=== PATIENT | male | born 1970 | race Caucasian/White ===

== ENCOUNTER 2016-08-26 02:35 | Inpatient (IN) | payer OTHER ==
--- NOTE | ~2016-08-26 | IDS ---
Interim Discharge Summary [facility] [address] [place]. [address] NAME: KE JENSEN : 66 STATUS : ADM IN PAT#: [id number] AGE: 46 ADM/REG DATE : 08/26/16 MR#: [id number] REPORT SERV DATE: 09/18/16 DICTATED BY: GREGOR KNOTT DATE: 09/18/16 REPORT STATUS : Draft TRANSCRIBED BY: MODL DATE: 09/18/16 ADMISSION DATE: 08/26/2016 DISCHARGE DATE: Original date of admission is 08/26/2016. Interim summary covers dates 09/12/2016 through 09/18/2016. Discharge date is unknown at this time. The patient has Medicaid pending. HOSPITAL COURSE OVER THE PAST 7 DAYS: The patient has been in the hospital waiting for Medicaid approval versus other alternative discharge planning. At this point, he has no SNF benefit on his insurance and no family who was able to care for him. He is undergoing a divorce from his current per reports. There is no current safe discharge plan. [facility] has agreed to take him on once a safe discharge plan has been in place. He has hospice appropriate for his diagnosis of metastatic colon cancer. In regard to his bilateral ureteral obstruction status post perinephric abscess with bilateral percutaneous nephrostomy tubes, these are doing well. He did have some purulent drainage around one of his percutaneous nephrostomy tubes which did grow E. coli. He, today, will get a last dose of Levaquin. We will monitor him off that antibiotic. He had a very prolonged course of antibiotics and at this point, it is appropriate to stop them. He did have left lower extremity DVT. The edema has largely resolved. He is currently on prophylactic dose of Lovenox which he is tolerating. The question at this point is whether to resume therapeutic anticoagulation. Urology was not in favor of this given his nephrostomy tubes and very poor prognosis and potential need for further instrumentation, however given his stability at this point, it is something we may need to consider after discussion with him while he is here to see if he tolerates this versus just leaving him on prophylactic dosing. Disposition at this time is still pending Medicaid approval or other alternative discharge planning. DNK/LAQUITA Gregor Knott MD / [id number] CC: Gregor Knott MD
--- NOTE | ~2016-08-26 | IDS ---
Interim Discharge Summary [facility] [address] [place]. [address] NAME: KE JENSEN : 66 STATUS : ADM IN PAT#: [id number] AGE: 46 ADM/REG DATE : 08/26/16 MR#: [id number] REPORT SERV DATE: 09/11/16 DICTATED BY: DATE: REPORT STATUS : Draft TRANSCRIBED BY: MODL DATE: 09/11/16 ADMISSION DATE: 08/26/2016 DISCHARGE DATE: DISCHARGE DATE: Unknown at this time. Interim summary covers dates of service from 09/05/2016 through 09/11/2016. HISTORY OF PRESENT ILLNESS: Please refer to history and physical dated 08/26/[address] Lake Mcgraw for complete details pertaining to patient's initial presentation upon admission. Refer to consultation dated 08/28/[address] Justin Larios, Urology. Refer to interim discharge summary dated 09/04/2016 covering dates of service from 08/29/2016 through 09/04/2016, provided by Dr. Clovis Archer for details pertaining to events occurring during that time frame. HOSPITAL COURSE: 1. Leukocytosis. Source of leukocytosis is multifactorial to include recent right perinephric abscess and new onset of left percutaneous nephrostomy tube insertion site drainage that started several days ago. The patient has received treatment with multiple antibiotics to include vancomycin, Zosyn, and Ancef. Vancomycin and Zosyn were discontinued, and Ancef was started around 08/29/2016 until 09/08/2016. At that time, Ancef was discontinued, and the patient was placed on Zosyn secondary to new onset of purulent drainage from left nephrostomy tube site. Initial response to antibiotic change showed improvement in white blood cell count trending down from 19.2 to 16.3. However, white blood cell count spike today at 20.7. The patient remains afebrile; however, complained of sweats during night. Culture was obtained from left nephrostomy tube site on 09/08/2016 and is pending. Anaerobic culture has approximately two more days before results were interpreted; however, there was delay in aerobic culture being initiated. Aerobic culture was requested from 09/08/2016 specimen today. Pharmacy was consulted regarding antibiotics and it was recommended to continue Zosyn for not now. There is high concern for antibiotic resistance in the setting of inability to control source. All cultures to date have been E. coli positive. 2. Right perinephric abscess. Culture positive for E. coli. Continue Zosyn for now. NGOC drain was removed several days ago after bilateral percutaneous nephrostomy tubes were placed. NGOC site has closed with no additional signs or symptoms of infection or drainage from site. Continue Zosyn for now. 3. Bilateral ureteral obstruction secondary to mass. Bilateral percutaneous nephrostomy tubes remain patent. Urine output from right nephrostomy tube is approximately 1525 mL and left nephrostomy tube output approximately 2025 mL over the past 24 hours. Urine appears fairly clear. Urinalysis was obtained again on 09/08/2016 secondary to purulent drainage around left nephrostomy tube site, result indicated large blood, large leukocyte soren, negative nitrite greater than 182 red blood cells, and greater Interim Discharge Summary [address] [address] NAME: KE JENSEN : 66 STATUS : ADM IN PAT#: [id number] AGE: 46 ADM/REG DATE : 08/26/16 MR#: [id number] REPORT SERV DATE: 09/11/16 DICTATED BY: DATE: REPORT STATUS : Draft TRANSCRIBED BY: MODL DATE: 09/11/16 than 182 white blood cells. At this time, Ancef was discontinued and Zosyn was re- initiated. Reflex culture indicated no growth at one day. However, result is probably affected by prolonged antibiotic use. 4. Decreased ostomy output. The patient had production of large stool on 09/06/2016 and approximately 175 mL of stool on 09/07/2016. However, the patient's ostomy output is significantly decreased now. The patient has no complaints of abdominal pain. KUB is pending to rule out ileus/obstruction/malfunction of ostomy site. 5. Left lower extremity DVT, acute. Left lower extremity swelling has almost resolved over the past several days. Anticoagulation is still on hold secondary to increased risks for bleeding including severe malnutrition and metastatic cancer. The patient was originally on Eliquis, but this was discontinued per Urology's recommendation due to worsening blood in patient's NGOC drain and drop in hemoglobin. We will need to reconsider restarting anticoagulation before transitioning to long term facility. 6. Chronic anemia. The patient's hemoglobin and hematocrit have remained stable since receiving transfusions on 08/26/2016 and 09/06/2016. Hemoglobin and hematocrit are 11.8 and 37.6 today. 7. Metastatic colon cancer. The patient has been treated in the past by Dr. Guerrero, at [facility]. The patient has declined hospice care. New plan is to go to long term facility for rehab and then transition home to reside with sister. CURRENT PLAN: [facility] facility approval is pending. This discharge may be delayed secondary to ongoing infection. The patient may require antibiotics upon discharge. JEREMY/LAQUITA NOAH Cason / [id number] CC: Lake Alonso II, MD
--- NOTE | ~2016-08-26 | DS ---
Discharge Summary [place] [id number] [facility] [place]. [address] NAME: KE JENSEN : 66 STATUS : DIS IN PAT#: [id number] AGE: 46 ADM/REG DATE : 08/26/16 MR#: [id number] REPORT SERV DATE: 09/25/16 DICTATED BY: DATE: REPORT STATUS : Draft TRANSCRIBED BY: MODL DATE: 09/23/16 ADMISSION DATE: 08/26/2016 DISCHARGE DATE: 09/23/2016 DISCHARGE DIAGNOSES: 1. Metastatic colon cancer. 2. Leukocytosis. 3. Bilateral ureteral obstruction. 4. Right perinephric abscess. 5. Deep venous thrombosis. 6. Constipation. 7. Chronic anemia. CONSULTATIONS: Justin Larios M.D., Urology. PERTINENT TESTING AND PROCEDURES: 1. Chest x-ray, 08/26/2016, impression: No acute cardiopulmonary disease. Heart and mediastinum are normal with clear lungs and normal vasculature. 2. CT-guided drainage of renal abscess, 08/26/2016, impression: Technically successful CT- guided placement of catheter into perinephric drain, largely non-infectious urine-type fluid was obtained. At the conclusion, most of the fluid and air had been decompressed and was addressed with Niall-Zavala drainage. 3. Echocardiogram, 08/28/2016, conclusion: Overall quality of study is good. Tachycardia noted throughout study. Left ventricular systolic function intact at 57%. Indeterminate left ventricular diastolic function. Right ventricle systolic function, intact. No significant valvular dysfunction found. No pericardial effusion. No evidence of pleural effusion. 4. Left lower extremity venous Doppler, 08/29/2016, impression: Evidence for DVT in left lower extremity. No DVT in right lower extremity. 5. CT of abdomen and pelvis, 09/01/2016:. a. Despite double-J catheters bilateral hydronephrosis, right perinephric drain apparently functioning as a de facto PCN. Hepatosplenomegaly. Cardiomegaly. Anemia. Large pelvic malignancy with calcifications identified. Body anasarca, ostomy site is not blocked. 6. 09/04/2016, successful placement of bilateral percutaneous nephrostomy tubes. Unsuccessful attempts to remove bilateral double-J stents present upon admission. 7. KUB, 09/11/2016, impression: Continued bilateral double-J ureteral stents and right- sided perinephric drain. Interval placement of left-sided percutaneous nephrostomy tube. Moderate fecal burden throughout the right and transverse colon. Upper limits normal caliber, small bowel. 8. KUB, 09/20/2016, impression: No evidence of acute abnormality within the abdomen. Bilateral ureteral stents and bilateral percutaneous renal drainage tubes remain. 9. Left kidney surgical culture, final result, growth of E. coli. 10.Right kidney surgery culture 09/04/2016, final result, growth of E. coli. 11.Anaerobic culture obtained from left nephrostomy site, final result, growth in broth only of aerobic E coli. No growth of anaerobes. Discharge Summary [place] [address] [place]. [address] NAME: KE JENSEN : 66 STATUS : DIS IN PAT#: [id number] AGE: 46 ADM/REG DATE : 08/26/16 MR#: [id number] REPORT SERV DATE: 09/25/16 DICTATED BY: DATE: REPORT STATUS : Draft TRANSCRIBED BY: MODL DATE: 09/23/16 12.Urinalysis, 09/20/2016, indicated large leukocyte esterase, negative nitrite, 24 red blood cells, 171 white blood cells, rare bacteria. Urine culture, final result, no growth at one day. POINT OF ENTRY: Transfer from [facility] Emergency Department. PRIMARY ONCOLOGIST: Dr. Guerrero at [facility]. CHIEF COMPLAINT UPON ADMISSION: Right flank pain and drainage. HOSPITAL COURSE: Please refer to history and physical, dated 08/26/[address] Lake Mcgraw for complete details of the patient's initial presentation upon admission and health history. Please refer to consultation, dated 08/28/[address] Larios, Urology for details pertaining to the patient's presentation of spontaneous drainage, right flank. The patient had a prolonged hospitalization. Please refer to interim discharge summaries, dated 09/04/2016, 09/11/2016, and 09/18/2016 for additional details pertaining to extended hospital course. Briefly, the patient is a 46-year-old male who is under the care of Dr. Guerrero, oncologist at [facility] for management and treatment of metastatic colon cancer. The patient reported to [facility] Emergency Department on 08/26/2016 with complaints of several-day history of right posterior flank pain associated with swelling and drainage. At this time, the patient per-self report was currently actively receiving chemotherapy every two weeks. Last session presumed to be Sunday prior to this admission. The patient was unable to state name of chemotherapy agents. Initial evaluation at [facility] Emergency Department was notable for heart rate of 118 with temperature of 100.4 degrees Fahrenheit. Creatinine of 3.29, potassium 5.2, and lactic acid of 4.0. CT scan of the abdomen and pelvis showed an 8 x 4 x 8 cm air and fluid collection posterior to the right kidney as well as secondary abscess that was in subcutaneous region that measured approximately 4 x 7 x 5.6 x 7.5 cm as well as pericardial effusion of approximately 1.8 cm. The patient was given IV fluid hydration and antibiotics to include vancomycin and Zosyn were initiated. The patient was then transferred to [facility] for higher level of care. The patient's hospitalization was prolonged secondary to persistent right perinephric abscess and bilateral ureteral obstruction due to pelvic mass from metastatic colon cancer. The patient also developed left lower extremity swelling with DVT confirmed by ultrasound. The patient's discharge was also delayed secondary to complicated social history to include the patient's only source of social support being his sister. 1. Metastatic colon cancer. The patient was previously under the care of Dr. Guerrero at [facility] and was reported to be undergoing chemotherapy prior to this Discharge Summary [address] [address] NAME: KE JENSEN : 66 STATUS : DIS IN PAT#: [id number] AGE: 46 ADM/REG DATE : 08/26/16 MR#: [id number] REPORT SERV DATE: 09/25/16 DICTATED BY: DATE: REPORT STATUS : Draft TRANSCRIBED BY: MODL DATE: 09/23/[address] Archer spoke with Dr. Guerrero by phone during this admission. Dr. Guerrero reported he believed the patient to be hospice appropriate at this time and had no plans for additional chemotherapy in the near future secondary to the patient's declining performance status. It was also noted that if the patient was to consider [facility] facility and had improvement in his performance status, he could follow up with Dr. Guerrero as an outpatient to see if he was a candidate for further palliative chemo. However, this was believed to be most unlikely secondary to the patient's deteriorating health state. Plans are for the patient to transition home today under the care of [facility]. 2. Leukocytosis. This has been an ongoing issue secondary to right perinephric abscess and infection at insertion site of left percutaneous nephrostomy tube. The patient has been on very prolonged course of antibiotics during this admission. Despite prolonged treatment, the patient's white blood count has never normalized secondary to extreme difficulty controlling source of infection. Antibiotic course was completed on 09/18/2016. Since discontinuation of antibiotics, the patient's white blood cell count has continued to trend upward to 23,600. Repeat urinalysis was obtained and indicated likely infection; however, urine culture result was negative. This may be related to long-term therapy with antibiotic having been discontinued only three days prior to repeat urinalysis. The patient was started on antibiotic Ancef 2 g every eight hours on 09/21/2016. Since that time, white blood cell count is once again trending downward and is reported to be 22,500 on the day of discharge. The patient will likely need lifetime antibiotic to control infection due to inability to completely resolve infection secondary to bilateral ureteral obstruction secondary to metastatic disease. The patient was placed on Duricef 1000 mg p.o. every 12 hours x10 days to be reassessed by Hospice physician upon discharge. 3. Bilateral ureteral obstruction. This is secondary to mass. The patient presented to hospital with bilateral double-J stents in place. The patient underwent placement of bilateral percutaneous nephrostomy tubes during this admission as well. Since that time, tubes have been draining without any indication of new obstruction. Several days ago, the patient did develop, what appeared to be infection at the insertion site of left percutaneous nephrostomy tube. Culture was obtained and it was positive for E. coli. Antibiotics were changed at that time, and clinical signs and symptoms of infection have since resolved. 4. Right perinephric abscess. The patient initially had NGOC drain inserted prior to waiting on bilateral percutaneous nephrostomy tubes to be placed. Old site of NGOC drain has closed with no signs or symptoms of infection. Continue antibiotic. 5. DVT. This was diagnosed during this admission per ultrasound. The patient has been on prophylaxis anticoagulant; however, no chronic anticoagulation was initiated secondary to the patient's high risk for bleeding to include metastatic colon cancer, malnutrition, and bilateral percutaneous nephrostomy tubes. The patient's left lower extremity was initially significantly swollen with 2 to 3+ pitting edema. However, that has self-resolved. The patient has no bilateral lower extremity edema at the time of discharge. 6. Constipation, chronic. This is secondary to opioid use. The patient has an ostomy, left abdominal quadrant. The patient received aggressive bowel regimen and constipation was resolved. The patient must maintain aggressive bowel regimen to avoid constipation secondary to potential complications that could be related to metastatic Discharge Summary [place] [address] [place]. [address] NAME: KE JENSEN : 66 STATUS : DIS IN PAT#: [id number] AGE: 46 ADM/REG DATE : 08/26/16 MR#: [id number] REPORT SERV DATE: 09/25/16 DICTATED BY: DATE: REPORT STATUS : Draft TRANSCRIBED BY: ALQUITA DATE: 09/23/16 colon cancer. 7. Chronic anemia. This is secondary to disease state. The patient's hemoglobin and hematocrit have remained stable. 8. Severe sepsis. This was upon admission and was related to right perinephric abscess. All signs and symptoms of sepsis have since resolved, and the patient is afebrile. DISCHARGE CONDITION: At the time of discharge, the patient is hemodynamically stable. DISCHARGE DIET: Regular diet as tolerated. DISCHARGE MEDICATIONS: 1. MS Contin 30 mg SR tablet p.o. every eight hours. 2. Protonix 40 mg tablet p.o. daily before breakfast. 3. MiraLAX 17 g p.o. twice daily, hold for excessive ostomy output. 4. Senokot one tablet p.o. every night, hold for excessive ostomy output. 5. Tylenol 650 mg p.o. every four hours as needed. 6. Milk of magnesia 30 mL p.o. daily as needed. 7. Zofran 4 mg tablet p.o. every eight hours as needed. 8. Percocet 5/325 mg tablet, take one to two tablets p.o. every six hours as needed, hold for sedation. 9. Zanaflex 2 mg tablet p.o. twice daily as needed. 10.Resume the patient's poev-cun-eecqrhe medications to include vitamin B12, iron, Gas-X, Tums, vitamin D, and cranberry supplement. 11.Cefadroxil 1000 mg tablet p.o. every 12 hours x10 days for right perinephric abscess, E. coli. The patient will need to be reassessed by hospice M.D. to determine if life time antibiotic therapy is necessary due to inability to control underlying source of infection. DISCHARGE INSTRUCTIONS: All future plans of care will be determined per Dr. Miko Smith, at [facility]. JEREMY/LAQUITA Belkys Chairez NURSE SITTER-C / [id number] CC: MD Justin Johnson II, M.D. Devon N. Kendrick, MD James C. Balvich, MD Randy Heisser, M.D. John McCravey, M.D.
--- NOTE | ~2016-08-26 | CN ---
Consultation Report [facility] [address] [place]. [address] NAME: KE JENSEN : 66 STATUS : ADM IN [facility]#: [id number] AGE: 46 ADM/REG DATE : 08/26/16 MR#: [id number] REPORT SERV DATE: 08/28/16 DICTATED BY: ECLIO PERLA DATE: 08/26/16 REPORT STATUS : Draft TRANSCRIBED BY: MODL DATE: 08/26/16 DATE OF CONSULTATION: 08/26/2016 CHIEF COMPLAINT: Spontaneous drainage, right flank. HISTORY OF PRESENT ILLNESS: Mr. Jensen is an unfortunate 46-year-old, who has had metastatic colorectal cancer. He has undergone multiple rounds of systemic chemotherapy. He has a colostomy. He developed bilateral ureteral obstruction last summer, had ureteral stents placed by Dr. Pierce in [place]. He was in the hospital with severe back pain last week. He is currently on chemotherapy and his next course is scheduled for Sunday. He went to the [facility] in [place] this morning. CT scan showed perinephric abscess. This spontaneously drained shortly after arrival here. He has not had fever. He is chronically. He has a very large pelvic mass likely presenting persistent malignancy. PAST MEDICAL HISTORY: Metastatic colorectal cancer, currently undergoing salvage chemotherapy; diverting colostomy. HOME MEDICATIONS: Unknown. ALLERGIES: NONE. SOCIAL HISTORY: . No alcohol, tobacco, or illicit drug use. He is unemployed. REVIEW OF SYSTEMS: Chronically ill and weak. Creatinine as high as 3.9 at [facility] earlier today. PHYSICAL EXAMINATION: VITAL SIGNS: Temperature 97.6, pulse 105, respirations 18, blood pressure 108/65. GENERAL: Chronically ill, cachectic 46-year-old appearing somewhat older than stated age, in no acute distress. HEENT: Sclerae anicteric. LUNGS: Clear. HEART: Regular rate and rhythm. CHEST: Clear anteriorly. ABDOMEN: Soft, nontender, nondistended. Some palpable mass in the midline pelvis. No rebound or guarding. Left lower quadrant colostomy is pouched. There is a dressing over the right flank with a right perinephric drain placed earlier today. Fluid from this is consistent with urine at this time. IMAGING: CT scan shows a right perinephric abscess with air fluid level. There are bilateral indwelling ureteral stents that appear nonencrusted. A very large pelvic mass is partially calcified. The right perinephric abscess is present tracking along the 11th and 12th rib. IMPRESSION: Consultation Report [facility] [address] [place]. [address] NAME: KE JENSEN : 66 STATUS : ADM IN PAT#: [id number] AGE: 46 ADM/REG DATE : 08/26/16 MR#: [id number] REPORT SERV DATE: 08/28/16 DICTATED BY: CELIO PERLA DATE: 08/26/16 REPORT STATUS : Draft TRANSCRIBED BY: MODL DATE: 08/26/16 1. Right perinephric abscess. 2. Acute kidney injury possibly secondary to stent obstruction. PLAN: This is a very unusual presentation. It appears there was spontaneous extravasation from his right kidney. I suspect this is from a previous right nephrostomy tube tract. If both the stents are obstructed with a large calcified pelvic mass, then spontaneous extravasation certainly could occur. This drain has been placed. This is functionally a nephrostomy tube. Cultures have been obtained. If creatinine fails to improve, then a left nephrostomy tube would be considered. [facility] Celio Perla M.D. / [id number] CC: MD Celio Redd M.D. Joseph Veys, MD
--- NOTE | ~2016-08-26 | IDS ---
Interim Discharge Summary [facility] [address] [place]. [address] NAME: KE JENSEN : 66 STATUS : ADM IN PAT#: [id number] AGE: 46 ADM/REG DATE : 08/26/16 MR#: [id number] REPORT SERV DATE: 09/04/16 DICTATED BY: GREGOR ARCHER DATE: 09/04/16 REPORT STATUS : Draft TRANSCRIBED BY: MODL DATE: 09/04/16 ADMISSION DATE: 08/26/2016 DISCHARGE DATE: Interim summary covers dates from 08/29/2016 through 09/04/2016. HISTORY OF PRESENT ILLNESS: Please see full H and P by Dr. Mcgraw for details regarding the patient's initial presentation. HOSPITAL COURSE: 1. Right E coli perinephric abscess with drainage. The patient was admitted to the hospital, seen by Urology, had a NGOC drain placed in the perinephric abscess, which has been draining urine. Initially, it was purulent. Cultures grew E coli. He was transitioned from Zosyn and Ancef. I discussed this with Infectious Disease who would recommend Ancef while in the hospital with consideration of p.o. antibiotics such as fluoroquinolones at the time of discharge. 2. Bilateral ureteral obstruction due to pelvic mass from metastatic colon cancer. The patient will have bilateral percutaneous nephrostomy tubes placed today per Urology recommendations. Notably, he has had these in the past and had demanded them be removed. Dr. Larios from urology has discussed this with the patient's outpatient urologist, Dr. Pierce. The patient has a history of noncompliance. I have also discussed current situation with Mr. Jensen' oncologist, Dr. Guerrero who says the patient at this point a hospice appropriate. He may consider SNF, and if gets stronger, consider follow up with Dr. Guerrero as an outpatient to see further palliative chemotherapy would be an option. At this point, no plans for chemotherapy in the near future pending a rehab stay versus an appropriate hospice evaluation. Today, Mr. Jensen has agreed to talk to hospice and that consult has been placed. 3. Severe malnutrition due to malignancy. The patient has a BMI of 22. He has supplements and we are encouraging p.o. intake. 4. Left lower extremity swelling with DVT. The patient had an ultrasound, which did show an acute DVT. He was initially placed on Eliquis with worsening blood in his NGOC drain and drop in his hemoglobin. After discussion with Urology, it was determined to hold his anticoagulation at this time. This can be readdressed after his bilateral percutaneous nephrostomy tubes have been placed. However, given his poor prognosis, this will be not an easy discussion to have. He will be at risk for bleeding given his bilateral percutaneous nephrostomy tubes in addition to metastatic colon cancer and malnutrition. 5. Acute on chronic abdominal and back pain as well as left lower extremity pain. We were attempting pain control. We have gotten him off the RESPIRATORY CARE SPECIALIST. He has been on MS Contin to help with basal pain relief. 6. Constipation. The patient is scheduled on p.r.n. milk of magnesia. 7. Acute blood loss anemia on chronic anemia. Mr. Jensen did have a drop in his hemoglobin to 6.8 on the and he did require 1 unit of blood. Currently, he is stable in the mid to high 7s. 8. Disposition. At this point, the patient has pending covers at his percutaneous nephrostomy tube placement, and then discussion can be had whether the patient will go Interim Discharge Summary [place] [id number] [facility] [place]. [address] NAME: KE JENSEN : 66 STATUS : ADM IN [facility]#: [id number] AGE: 46 ADM/REG DATE : 08/26/16 MR#: [id number] REPORT SERV DATE: 09/04/16 DICTATED BY: GREGOR ARCHER DATE: 09/04/16 REPORT STATUS : Draft TRANSCRIBED BY: LAQUITA DATE: 09/04/16 to SNF for a rehab stay versus consideration of hospice. His only social support currently is his sister, however, she does work, so this will be a complicated situation if it is deemed that the patient will go to hospice. This conversation will need to be had with sister and the patient after hospice consultation. 9. Severe sepsis. The patient initially came in with severe sepsis, this has resolved. He currently has tachycardia and leukocytosis consistent with his bilateral ureteral obstructions. This could very well be sepsis related to obstruction and perinephric pathology versus SIRS. He is on appropriate antibiotics for E coli coverage. This will need to be followed once his obstruction has been relieved by percutaneous nephrostomy tube, he has continued on Ancef. 10.Acute renal failure with metabolic acidosis. These have resolved with percutaneous drainage of his right perinephric abscess. His current kidney function is 1.15. Metabolic acidosis has also resolved. DNK/MODL rGegor Archer MD / [id number] CC: Gregor Archer MD
--- NOTE | ~2016-08-26 | HP ---
History And Physical [place] [id number] [place]. [address] NAME: KE JENSEN : 66 STATUS : ADM IN PAT#: [id number] AGE: 46 ADM/REG DATE : 08/26/16 MR#: [id number] REPORT SERV DATE: 08/26/16 DICTATED BY: DAVID MIKE DATE: 08/26/16 REPORT STATUS : Draft TRANSCRIBED BY: MODL DATE: 08/26/16 DATE OF ADMISSION: 08/26/2016 POINT OF ENTRY: Transfer from [facility] Emergency Department. PRIMARY CARE PHYSICIAN: Unknown at this time. PRIMARY ONCOLOGIST: Dr. Guerrero of [facility]. CHIEF COMPLAINT: Right flank pain and drainage. HISTORY OF PRESENT ILLNESS: Mr. Jensen is an unfortunate 46-year-old gentleman with a history of metastatic colon cancer, who is currently receiving active chemotherapy through the oncology group at [facility], who presented to [facility] Emergency Department on Sunday evening with report of a few day history of right posterior flank pain with associated swelling and drainage. The patient receives all of his care at [facility] and unfortunately, we do not have any records documenting his treatment for his metastatic colon cancer. When [facility] tried to admit the patient to [facility], they were told that there were no beds available for the patient at this time and therefore, we were asked to admit the patient. Unfortunately, the patient also is a very poor historian and is unable to provide me much detail regarding the history of his recent care. The patient does report to me he was recently admitted to [facility] a few weeks ago for what the ER doctor at [facility] tells me was urinary tract infection as well as bacteremia. The patient states that for the past few days, he has had progressive worsening pain in the right posterior flank region with associated swelling as well as some clear liquid drainage. The pain is so severe it is causing him some troubles breathing as he feels as if he cannot take a deep breath in. He denies any fevers, night sweats, chills, chest pain, palpitations, abdominal pain. He does have some chronic nausea with occasional episodes of vomiting, also complaining of some sores in his mouth and sore throat with. The patient is currently actively receiving chemotherapy. He tells me it is every two weeks. He tells me his last session was this last Sunday. He unfortunately is unable to tell me the names of his chemotherapy agents. Initial evaluation at [facility] Emergency Department notable for a heart rate of 118 with a temperature of 100.4 degrees Fahrenheit. White count was 2.9. ANC was 2500. Labs are notable for a BUN of 99, creatinine 3.29 with a potassium of 5.2 with a lactic acid of 4.0. CT scan of the abdomen and pelvis was markedly abnormal, which shows an 8 x 4 x 8 cm air and fluid collection posterior to the right kidney as well as a secondary abscess that was in the subcutaneous region that measures approximately 4 x 7 x 5.6 x 7.5 cm as well as a pericardial effusion of approximately 1.8 cm. The patient was given approximately 2 L of IV History And Physical [address] [address] NAME: KE JENSEN : 66 STATUS : ADM IN [facility]#: [id number] AGE: 46 ADM/REG DATE : 08/26/16 MR#: [id number] REPORT SERV DATE: 08/26/16 DICTATED BY: DAVID MIKE DATE: 08/26/16 REPORT STATUS : Draft TRANSCRIBED BY: LAQUITA DATE: 08/26/16 fluids. Vancomycin, Zosyn, and multiple administrations of pain medications and then transferred to [facility] for higher level of care. PREVIOUS MEDICAL HISTORY: Metastatic colon cancer. SURGICAL HISTORY: One diverting colostomy. ALLERGIES: NO KNOWN DRUG ALLERGIES. HOME MEDICATIONS: Pending at the time of this dictation. SOCIAL HISTORY: Denies any tobacco, alcohol, or illicits. He is . FAMILY MEDICAL HISTORY: Parents history is unknown. LABORATORIES AND IMAGING: All obtained from transfer records from [facility] Emergency Department. 1. White count 2.9, hemoglobin 8.1, hematocrit is 25.1, platelet count is 274. ANC is 2500. 2. Sodium is 129, potassium 5.2, chloride 88, carbon dioxide 18, BUN 99, creatinine 3.29, glucose is 105, calcium is 8.6, protein is 6.7, albumin is 2.3, bilirubin is 0.4, ALT is 17, AST 20, alkaline phosphatase is 143. 3. Lactic acid is 4.0. 4. ESR is 140, CRP is 46.3. 5. CT scan of the abdomen and pelvis shows left lower lobe pulmonary mass versus metastatic lesion as well as an 8.1 x 4.0 x 7.6 cm air and fluid collection posterior to the right kidney. There is a second abscess posterior to the right ribs in the subcutaneous area, it is 4.7 x 5.6 x 7.5 cm. Also evidence of bilateral ureteral stents as well as a large 12.3 x 10.4 x 14 cm partially calcified mass in the pelvis as well as 1.8 cm pericardial effusion. PHYSICAL EXAMINATION: VITAL SIGNS: Here has a temperature of 97.6 degrees Fahrenheit, pulse is 105, respirations 18, saturating 97% on room air, blood pressure is 108/65. GENERAL: The patient is awake, alert, and in no acute distress. Resting comfortably. He is a cachectic frail-appearing, chronically ill-appearing male, who appears older than stated age. is not at bedside at this time. HEENT: Atraumatic and normocephalic. Dry mucous membranes with evidence of some stomatitis, but I do not appreciate any thrush at this time. There is also some mild mucositis present as well. Pupils were equal, round, reactive to light and accommodation. Extraocular movements intact. No scleral icterus. NECK: No jugular venous distention. No carotid bruits. CARDIAC: Tachycardic rate, regular rhythm. No murmurs, rubs, or gallops. Normal S1 and S2. LUNGS: Clear to auscultation bilaterally with some decreased breath sounds in the bases. ABDOMEN: Soft, nontender, and nondistended. Good bowel sounds. There is a colostomy bag in the left lower quadrant. MUSCULOSKELETAL: The patient does have a very large, at least 5 x 6 cm area of swelling History And Physical [address] [address] NAME: KE JENSEN : 66 STATUS : ADM IN PAT#: [id number] AGE: 46 ADM/REG DATE : 08/26/16 MR#: [id number] REPORT SERV DATE: 08/26/16 DICTATED BY: DAVID MIKE DATE: 08/26/16 REPORT STATUS : Draft TRANSCRIBED BY: MODL DATE: 03/11/17 represent a subcutaneous abscess in the posterior right flank region that is draining a very clear yellowish colored, almost urine-appearing material. EXTREMITIES: Warm and well-perfused. No cyanosis, clubbing, or edema. They are wasting and cachectic. SKIN: Warm and dry. PSYCH: Affect appropriate. NEURO: Alert and oriented x3. Cranial nerves II through XII grossly intact. Speech is normal. Gait not assessed. ASSESSMENT: Mr. Jensen is a 46-year-old gentleman with history of metastatic colon cancer, who presents with right flank pain and swelling and found to have unfortunately evidence of severe sepsis along with right perinephric abscess as well as right flank subcutaneous abscess. PROBLEM LIST: 1. Severe sepsis. 2. Right perinephric abscess. 3. Right flank subcutaneous abscess. 4. Hyperkalemia. 5. Acute kidney injury. 6. Metabolic acidosis. 7. Metastatic colon cancer. 8. Pericardial effusion. 9. Severe protein-calorie malnutrition. PLAN: 1. Severe sepsis. The patient meets criteria with leukopenia, tachycardia, fevers as well as evidence of organ dysfunction with acute kidney injury as well as lactic acid of 4.0. Per review of transfer records, it appears that he has received at least 2 L of IV fluids, which is given his cachectic nature is more than 30 mL/kg. As such, we will repeat labs upon admission, including a repeat lactic acid level to ensure that this is now down trending. Continue broad-spectrum antibiotics as well as IV fluid hydration. Follow up blood cultures obtained at [facility]. We will also check a procalcitonin level here as well as wound cultures. 2. Right perinephric abscess. We will continue IV antibiotics of vancomycin and Zosyn. Consult Interventional Radiology for a CT-guided percutaneous abscess catheter drainage. 3. Right flank subcutaneous abscess. We will consult General Surgery for incision and drainage, collect wound culture. The patient is draining a very clear yellowish material from this abscess making me concern that there may be some kind of deeper communication between the two abscesses as well as the kidney that was not adequately visualized given the lack of IV contrast used. 4. Acute kidney injury. Again, we have no recent baseline. We will try to obtain records from [facility]. We will provide aggressive IV fluid hydration. Avoid nephrotoxic medications. Followup repeat admission labs. 5. Hyperkalemia. Review of EKG does not document any hyperacute or peaked T-waves. We will continue telemetry monitoring. We will follow up repeat labs and address any History And Physical [address] [place]. [address] NAME: KE JENSEN : 66 STATUS : ADM IN PAT#: [id number] AGE: 46 ADM/REG DATE : 08/26/16 MR#: [id number] REPORT SERV DATE: 08/26/16 DICTATED BY: DAVID MIKE DATE: 08/26/16 REPORT STATUS : Draft TRANSCRIBED BY: MODSuzan DATE: 08/26/16 hyperkalemia treatment if necessary. 6. Pericardial effusion. The patient is hemodynamically stable at this time; however, we will check an echocardiogram to determine if the effusion is hemodynamically significant. 7. Metastatic colon cancer. Again, we will try to obtain records from [facility] detailing this gentleman's treatment as well as details about his chemotherapy. We will consult Oncology for assistance in doing this as well as assistance during this hospitalization. 8. Severe protein-calorie malnutrition. Nutrition consultation. 9. DVT prophylaxis. TEDs and SCDs as the patient may require future intervention. CODE STATUS: The patient wishes to be full code. JOSEFA/PETRL David Mike MD / [id number] CC: MD Justin Redd M.D.
[~2016-08-26 02:35] MED LIST: ENDOCET1 TA1 PO; KLONO1 PO; MIRALAXPKT PO
[2016-08-26 04:30] LABS: CALCIUM, SERUM 8.6 MG/DL (8.5-10.4); CHLORIDE, SERUM 105 MMOL/L (96-112); SODIUM, SERUM 137 MMOL/L (135-148)
[2016-08-26 04:32] LABS: BUN (BLOOD UREA NITROGEN) 92 MG/DL (6-23); CO2 (CARBON DIOXIDE) 21 MMOL/L (24-34); CREATININE 2.81 MG/DL (0.70-1.30); GFR AFRICAN AMERICAN 29 ML/MIN (>=60); GFR NON AFRICAN AMERICAN 25 ML/MIN (>=60); GLUCOSE, SERUM 80 MG/DL (60-99); POTASSIUM, SERUM 4.5 MMOL/L (3.5-5.3)
[2016-08-26 04:36] LABS: MEAN PLATELET VOLUME 9.9 fL (9.2-13.0); RED CELL COUNT 3.26 10/6/uL (4.7-6.1)
[2016-08-26 04:52] LABS: HEMOGLOBIN 7.7 g/dL (13.6-17.8); MANUAL DIFF YES %; MEAN CORPUS HGB CONC 29.6 g/dL (32.0-36.0); MEAN CORPUSCULAR HEMOGLOB 23.6 pg (26.0-34.0); MEAN CORPUSCULAR VOLUME 79.8 fL (80-100); PLATELET COUNT 322 10/3/uL (150-400); RBC DISTRIBUTION WIDTH 18.8 % (12.0-16.0)
[2016-08-26 05:16] LABS: BAND NEUTROPHILS 18 %; EOSINOPHILS 1 %; LYMPHOCYTES 7 %; MONOCYTES 5 %; SEGMENTED NEUTROPHIL (0) 69 %; TOTAL NUCLEATED CELLS 100
[2016-08-26 05:17] LABS: ANISOCYTOSIS 1+ (5-10/OIF) (0-5/OIF); PLATELET ESTIMATE ADQ (ADEQUATE)
[2016-08-26 06:00] LABS: PROCALCITONIN 52.86 ng/mL (<0.5)
[2016-08-26 07:27] LABS: MEAN CORPUSCULAR HEMOGLOB 24.4 pg (26.0-34.0); MEAN PLATELET VOLUME 9.5 fL (9.2-13.0); PLATELET COUNT 277 10/3/uL (150-400); RBC DISTRIBUTION WIDTH 18.4 % (12.0-16.0); RED CELL COUNT 2.75 10/6/uL (4.7-6.1); WHITE BLOOD CELLS 3.1 10/3/uL (4.5-10.5)
[2016-08-26 07:32] LABS: HEMATOCRIT 21.1 % (40.0-51.0); HEMOGLOBIN 6.7 g/dL (13.6-17.8); MANUAL DIFF YES %; MEAN CORPUS HGB CONC 31.8 g/dL (32.0-36.0); MEAN CORPUSCULAR VOLUME 76.7 fL (80-100)
[2016-08-26 07:33] LABS: INTERNATIONAL NORMAL RATI 1.5 UNITS (-); PARTIAL THROMBO TIME 44.4 SEC (22.5-37.2); PROTIME (NOT ORD) 17.6 SEC (12.0-14.5)
[2016-08-26 07:40] LABS: CALCIUM, SERUM 8.4 MG/DL (8.5-10.4); CHLORIDE, SERUM 106 MMOL/L (96-112); CO2 (CARBON DIOXIDE) 19 MMOL/L (24-34); CREATININE 2.57 MG/DL (0.70-1.30); GFR AFRICAN AMERICAN 33 ML/MIN (>=60); GFR NON AFRICAN AMERICAN 28 ML/MIN (>=60); PHOSPHORUS, SERUM 4.2 MG/DL (2.5-4.5); POTASSIUM, SERUM 4.2 MMOL/L (3.5-5.3); SODIUM, SERUM 139 MMOL/L (135-148)
[2016-08-26 07:41] LABS: ALBUMIN 1.5 G/DL (3.5-5.0); BUN (BLOOD UREA NITROGEN) 81 MG/DL (6-23); GLUCOSE, SERUM 101 MG/DL (60-99)
[2016-08-26 07:56] LABS: LACTATE 2.4 MMOL/L (0.3-2.4)
[2016-08-26 08:04] LABS: ANISOCYTOSIS 1+ (5-10/OIF) (0-5/OIF); BAND NEUTROPHILS 24 %; EOSINOPHILS 2 %; EOSINOPHILS ABSOLUTE (CALC) 0.06 10/3/uL (0.0-0.53); IMMATURE GRANS ABSOLUTE (CALC) 0.03 10/3/uL (0.0-0.11); LYMPHOCYTES 8 %; LYMPHOCYTES ABSOLUTE (CALC) 0.25 10/3/uL (0.67-4.30); METAMYELOCYTES 1 %; MONOCYTES 16 %; NEUTROPHILS ABSOLUTE (CALC) 2.26 10/3/uL (2.02-8.40); PLATELET ESTIMATE ADQ (ADEQUATE); SEGMENTED NEUTROPHIL (0) 49 %; TOTAL NUCLEATED CELLS 100
[2016-08-26 08:05] LABS: HELMET CELLS OCC (0-2/OIF); MICROCYTES 1+ (5-10/OIF) (0-5/OIF); POLYCHROMASIA 1+ (2-5/OIF) (0-1/OIF); TARGET CELLS OCC (1-2/OIF) (0-1/OIF); TEARDROP SHAPED RBCS OCC (0-2/OIF)
[2016-08-26 08:07] LABS: HYPOCHROMIA 1+ (3-10/OIF) (0-2/OIF); SPHEROCYTES OCC (0-2/OIF)
[2016-08-26] MEDS ORDERED: IRON PO (12:12)
[2016-08-26] MEDS ORDERED: B12 PO (12:12)
[2016-08-26] MEDS ORDERED: PROTONIX PO (12:13)
[2016-08-26] MEDS ORDERED: GAS X PO (12:13)
[2016-08-26] MEDS ORDERED: TUMS PO (12:14)
[2016-08-26] MEDS ORDERED: MOMUD PO (12:14)
[2016-08-26] MEDS ORDERED: NORCO1 TAB PO (12:15)
[2016-08-26] MEDS ORDERED: VITAMIN E PO (12:16)
[2016-08-26] MEDS ORDERED: CRANBERRY PO (12:17)
[2016-08-26] MEDS ORDERED: POTASSIUM PO (12:17)
[2016-08-26] MEDS ORDERED: FIBER GUMMIES PO (12:18)
[2016-08-26] MEDS ORDERED: ZANAFLEX2 MG PO (12:27)
[2016-08-26] MEDS ORDERED: ZOFRAN4 PO (12:28)
[2016-08-27 05:43] LABS: MEAN CORPUS HGB CONC 31.4 g/dL (32.0-36.0); MEAN CORPUSCULAR HEMOGLOB 24.6 pg (26.0-34.0); MEAN CORPUSCULAR VOLUME 78.4 fL (80-100); PLATELET COUNT 351 10/3/uL (150-400); RBC DISTRIBUTION WIDTH 18.2 % (12.0-16.0)
[2016-08-27 05:44] LABS: HEMOGLOBIN 8.8 g/dL (13.6-17.8); MANUAL DIFF YES %; RED CELL COUNT 3.57 10/6/uL (4.7-6.1); WHITE BLOOD CELLS 9.2 10/3/uL (4.5-10.5)
[2016-08-27 05:59] LABS: ALBUMIN 1.6 G/DL (3.5-5.0); CALCIUM, SERUM 8.1 MG/DL (8.5-10.4); CHLORIDE, SERUM 107 MMOL/L (96-112); CO2 (CARBON DIOXIDE) 21 MMOL/L (24-34); GLUCOSE, SERUM 84 MG/DL (60-99); POTASSIUM, SERUM 3.9 MMOL/L (3.5-5.3); SODIUM, SERUM 141 MMOL/L (135-148); VANCOMYCIN TROUGH 5.6 MCG/ML (10.0-20.0)
[2016-08-27 06:00] LABS: BUN (BLOOD UREA NITROGEN) 56 MG/DL (6-23); CREATININE 1.66 MG/DL (0.70-1.30); GFR AFRICAN AMERICAN 56 ML/MIN (>=60); GFR NON AFRICAN AMERICAN 48 ML/MIN (>=60)
[2016-08-27 06:54] LABS: ANISOCYTOSIS 1+ (5-10/OIF) (0-5/OIF); BAND NEUTROPHILS 31 %; EOSINOPHILS 2 %; EOSINOPHILS ABSOLUTE (CALC) 0.18 10/3/uL (0.0-0.53); LYMPHOCYTES 8 %; LYMPHOCYTES ABSOLUTE (CALC) 0.74 10/3/uL (0.67-4.30); MONOCYTES 13 %; NEUTROPHILS ABSOLUTE (CALC) 7.08 10/3/uL (2.02-8.40); SEGMENTED NEUTROPHIL (0) 46 %; TOTAL NUCLEATED CELLS 100
[2016-08-27 06:55] LABS: HYPOCHROMIA 1+ (3-10/OIF) (0-2/OIF); PLATELET ESTIMATE ADQ (ADEQUATE); POLYCHROMASIA 1+ (2-5/OIF) (0-1/OIF); TOXIC GRANULATION 2+; VACUOLATED NEUTROPHILES OCC
[2016-08-27 06:56] LABS: BURR CELLS 1+ (3-10/OIF) (0-2/OIF); MICROCYTES 1+ (5-10/OIF) (0-5/OIF); TEARDROP SHAPED RBCS OCC (0-2/OIF)
[2016-08-27 15:28] LABS: HEMOGLOBIN 8.9 g/dL (13.6-17.8); MEAN CORPUS HGB CONC 31.8 g/dL (32.0-36.0); MEAN CORPUSCULAR HEMOGLOB 25.1 pg (26.0-34.0); MEAN CORPUSCULAR VOLUME 79.1 fL (80-100); MEAN PLATELET VOLUME 9.9 fL (9.2-13.0); PLATELET COUNT 302 10/3/uL (150-400); RBC DISTRIBUTION WIDTH 18.1 % (12.0-16.0); RED CELL COUNT 3.54 10/6/uL (4.7-6.1); WHITE BLOOD CELLS 10.6 10/3/uL (4.5-10.5)
[2016-08-27 15:35] LABS: A/G RATIO 0.4 (0.7-1.9); ALBUMIN 1.5 G/DL (3.5-5.0); ALKALINE PHOSPHATASE 143 U/L (45-117); BUN (BLOOD UREA NITROGEN) 47 MG/DL (6-23); CALCIUM, SERUM 8.3 MG/DL (8.5-10.4); CHLORIDE, SERUM 108 MMOL/L (96-112); CO2 (CARBON DIOXIDE) 21 MMOL/L (24-34); CREATININE 1.59 MG/DL (0.70-1.30); GFR AFRICAN AMERICAN 59 ML/MIN (>=60); GFR NON AFRICAN AMERICAN 51 ML/MIN (>=60); GLUCOSE, SERUM 99 MG/DL (60-99); POTASSIUM, SERUM 3.6 MMOL/L (3.5-5.3); SGOT(AST) 19 U/L (5-40); SGPT(ALT) 15 U/L (5-65); SODIUM, SERUM 141 MMOL/L (135-148); TOTAL BILIRUBIN 0.6 MG/DL (0-1.2); TOTAL PROTEIN 5.5 G/DL (6.0-8.5)
[2016-08-27 15:41] LABS: MANUAL DIFF YES %
[2016-08-27 16:04] LABS: BAND NEUTROPHILS 4 %; BASOPHILS 1 %; BASOPHILS ABSOLUTE (CALC) 0.11 10/3/uL (0.0-0.16); EOSINOPHILS 3 %; EOSINOPHILS ABSOLUTE (CALC) 0.32 10/3/uL (0.0-0.53); IMMATURE GRANS ABSOLUTE (CALC) 0.21 10/3/uL (0.0-0.11); LYMPHOCYTES 3 %; LYMPHOCYTES ABSOLUTE (CALC) 0.32 10/3/uL (0.67-4.30); MONOCYTES 4 %; MONOCYTES ABSOLUTE (CALC) 0.42 10/3/uL (0.21-1.20); MYELOCYTES 2 %; NEUTROPHILS ABSOLUTE (CALC) 9.22 10/3/uL (2.02-8.40); SEGMENTED NEUTROPHIL (0) 83 %; TOTAL NUCLEATED CELLS 100
[2016-08-27 16:06] LABS: OTHER MORPHOLOGY PLT CL; PLATELET ESTIMATE ADQ (ADEQUATE); TOXIC GRANULATION MOD
[2016-08-27 16:07] LABS: ANISOCYTOSIS 1+ (5-10/OIF) (0-5/OIF); POIKILOCYTOSIS 1+ (5-10/OIF) (0-5/OIF); POLYCHROMASIA 1+ (2-5/OIF) (0-1/OIF)
[2016-08-28 05:56] LABS: HEMATOCRIT 25.8 % (40.0-51.0); HEMOGLOBIN 8.1 g/dL (13.6-17.8); MEAN CORPUS HGB CONC 31.4 g/dL (32.0-36.0); MEAN CORPUSCULAR HEMOGLOB 24.9 pg (26.0-34.0); MEAN CORPUSCULAR VOLUME 79.4 fL (80-100); MEAN PLATELET VOLUME 10.1 fL (9.2-13.0); PLATELET COUNT 333 10/3/uL (150-400); RBC DISTRIBUTION WIDTH 18.6 % (12.0-16.0); RED CELL COUNT 3.25 10/6/uL (4.7-6.1); WHITE BLOOD CELLS 12.7 10/3/uL (4.5-10.5)
[2016-08-28 05:59] LABS: INTERNATIONAL NORMAL RATI 1.4 UNITS (-); PARTIAL THROMBO TIME 43.9 SEC (22.5-37.2)
[2016-08-28 06:01] LABS: MANUAL DIFF YES %
[2016-08-29 07:19] LABS: HEMATOCRIT 26.2 % (40.0-51.0); MEAN CORPUS HGB CONC 30.5 g/dL (32.0-36.0); MEAN CORPUSCULAR HEMOGLOB 25.1 pg (26.0-34.0); MEAN CORPUSCULAR VOLUME 82.1 fL (80-100); MEAN PLATELET VOLUME 9.5 fL (9.2-13.0); PLATELET COUNT 345 10/3/uL (150-400); RBC DISTRIBUTION WIDTH 18.4 % (12.0-16.0); RED CELL COUNT 3.19 10/6/uL (4.7-6.1); WHITE BLOOD CELLS 13.5 10/3/uL (4.5-10.5)
[2016-08-29 07:20] LABS: MANUAL DIFF YES %
[2016-08-29 07:40] LABS: ANISOCYTOSIS 1+ (5-10/OIF) (0-5/OIF); BAND NEUTROPHILS 17 %; EOSINOPHILS 1 %; EOSINOPHILS ABSOLUTE (CALC) 0.14 10/3/uL (0.0-0.53); IMMATURE GRANS ABSOLUTE (CALC) 0.54 10/3/uL (0.0-0.11); LYMPHOCYTES 6 %; LYMPHOCYTES ABSOLUTE (CALC) 0.81 10/3/uL (0.67-4.30); METAMYELOCYTES 3 %; MICROCYTES 1+ (5-10/OIF) (0-5/OIF); MONOCYTES 8 %; MONOCYTES ABSOLUTE (CALC) 1.08 10/3/uL (0.21-1.20); MYELOCYTES 1 %; NEUTROPHILS ABSOLUTE (CALC) 10.94 10/3/uL (2.02-8.40); PLATELET ESTIMATE ADQ (ADEQUATE); SEGMENTED NEUTROPHIL (0) 64 %; TOTAL NUCLEATED CELLS 100; TOXIC GRANULATION 2+
[2016-08-29 07:41] LABS: HYPOCHROMIA 1+ (3-10/OIF) (0-2/OIF); POIKILOCYTOSIS 1+ (5-10/OIF) (0-5/OIF); SCHISTOCYTES OCC (0-2/OIF)
[2016-08-29 07:42] LABS: ALBUMIN 1.5 G/DL (3.5-5.0); BUN (BLOOD UREA NITROGEN) 22 MG/DL (6-23); CALCIUM, SERUM 8.2 MG/DL (8.5-10.4); CHLORIDE, SERUM 107 MMOL/L (96-112); CO2 (CARBON DIOXIDE) 20 MMOL/L (24-34); GFR AFRICAN AMERICAN 68 ML/MIN (>=60); GFR NON AFRICAN AMERICAN 59 ML/MIN (>=60); GLUCOSE, SERUM 90 MG/DL (60-99); PHOSPHORUS, SERUM 2.2 MG/DL (2.5-4.5); POTASSIUM, SERUM 3.4 MMOL/L (3.5-5.3); SODIUM, SERUM 138 MMOL/L (135-148)
[2016-08-30 05:24] LABS: HEMATOCRIT 23.8 % (40.0-51.0); HEMOGLOBIN 7.4 g/dL (13.6-17.8); MEAN CORPUS HGB CONC 31.1 g/dL (32.0-36.0); MEAN CORPUSCULAR HEMOGLOB 25.3 pg (26.0-34.0); MEAN CORPUSCULAR VOLUME 81.5 fL (80-100); MEAN PLATELET VOLUME 10.2 fL (9.2-13.0); PLATELET COUNT 380 10/3/uL (150-400); RBC DISTRIBUTION WIDTH 18.3 % (12.0-16.0); RED CELL COUNT 2.92 10/6/uL (4.7-6.1); WHITE BLOOD CELLS 13.4 10/3/uL (4.5-10.5)
[2016-08-30 05:25] LABS: MANUAL DIFF YES %
[2016-08-30 05:36] LABS: CALCIUM, SERUM 7.6 MG/DL (8.5-10.4); CHLORIDE, SERUM 106 MMOL/L (96-112); CO2 (CARBON DIOXIDE) 20 MMOL/L (24-34); CREATININE 1.31 MG/DL (0.70-1.30); GFR AFRICAN AMERICAN 74 ML/MIN (>=60); GFR NON AFRICAN AMERICAN 64 ML/MIN (>=60); GLUCOSE, SERUM 100 MG/DL (60-99); PHOSPHORUS, SERUM 2.2 MG/DL (2.5-4.5); POTASSIUM, SERUM 3.2 MMOL/L (3.5-5.3); SODIUM, SERUM 138 MMOL/L (135-148)
[2016-08-30 05:39] LABS: BUN (BLOOD UREA NITROGEN) 16 MG/DL (6-23)
[2016-08-30 06:25] LABS: ANISOCYTOSIS 1+ (5-10/OIF) (0-5/OIF); BAND NEUTROPHILS 20 %; LYMPHOCYTES 3 %; MONOCYTES 2 %; MONOCYTES ABSOLUTE (CALC) 0.27 10/3/uL (0.21-1.20); NEUTROPHILS ABSOLUTE (CALC) 12.73 10/3/uL (2.02-8.40); PLATELET ESTIMATE ADQ (ADEQUATE); SEGMENTED NEUTROPHIL (0) 75 %; TOTAL NUCLEATED CELLS 100
[2016-08-30 06:26] LABS: POLYCHROMASIA 1+ (2-5/OIF) (0-1/OIF); TOXIC GRANULATION 2+
[2016-08-31 04:43] LABS: CALCIUM, SERUM 7.5 MG/DL (8.5-10.4); CHLORIDE, SERUM 106 MMOL/L (96-112); CO2 (CARBON DIOXIDE) 22 MMOL/L (24-34); CREATININE 1.29 MG/DL (0.70-1.30); GFR AFRICAN AMERICAN 75 ML/MIN (>=60); GFR NON AFRICAN AMERICAN 65 ML/MIN (>=60); GLUCOSE, SERUM 101 MG/DL (60-99); PHOSPHORUS, SERUM 2.2 MG/DL (2.5-4.5); POTASSIUM, SERUM 3.7 MMOL/L (3.5-5.3); SODIUM, SERUM 139 MMOL/L (135-148)
[2016-08-31 04:45] LABS: BUN (BLOOD UREA NITROGEN) 11 MG/DL (6-23)
[2016-09-01 05:08] LABS: HEMATOCRIT 22.4 % (40.0-51.0); MEAN CORPUS HGB CONC 30.4 g/dL (32.0-36.0); MEAN CORPUSCULAR HEMOGLOB 24.9 pg (26.0-34.0); MEAN CORPUSCULAR VOLUME 82.1 fL (80-100); MEAN PLATELET VOLUME 9.2 fL (9.2-13.0); RBC DISTRIBUTION WIDTH 18.4 % (12.0-16.0); RED CELL COUNT 2.73 10/6/uL (4.7-6.1); WHITE BLOOD CELLS 18.1 10/3/uL (4.5-10.5)
[2016-09-01 05:11] LABS: HEMOGLOBIN 6.8 g/dL (13.6-17.8); PLATELET COUNT 500 10/3/uL (150-400)
[2016-09-01 05:15] LABS: MANUAL DIFF YES %
[2016-09-01 05:19] LABS: ALBUMIN 1.2 G/DL (3.5-5.0); BUN (BLOOD UREA NITROGEN) 11 MG/DL (6-23); CALCIUM, SERUM 7.7 MG/DL (8.5-10.4); CHLORIDE, SERUM 104 MMOL/L (96-112); CO2 (CARBON DIOXIDE) 23 MMOL/L (24-34); CREATININE 1.22 MG/DL (0.70-1.30); GFR AFRICAN AMERICAN 81 ML/MIN (>=60); GFR NON AFRICAN AMERICAN 70 ML/MIN (>=60); GLUCOSE, SERUM 96 MG/DL (60-99); PHOSPHORUS, SERUM 2.6 MG/DL (2.5-4.5); POTASSIUM, SERUM 3.8 MMOL/L (3.5-5.3); SODIUM, SERUM 137 MMOL/L (135-148)
[2016-09-01 06:09] LABS: BAND NEUTROPHILS 24 %; HYPOCHROMIA 1+ (3-10/OIF) (0-2/OIF); IMMATURE GRANS ABSOLUTE (CALC) 0.18 10/3/uL (0.0-0.11); LYMPHOCYTES 7 %; LYMPHOCYTES ABSOLUTE (CALC) 1.27 10/3/uL (0.67-4.30); METAMYELOCYTES 1 %; MONOCYTES 4 %; MONOCYTES ABSOLUTE (CALC) 0.72 10/3/uL (0.21-1.20); NEUTROPHILS ABSOLUTE (CALC) 15.93 10/3/uL (2.02-8.40); PLATELET ESTIMATE SLT INC (ADEQUATE); SEGMENTED NEUTROPHIL (0) 64 %; TOTAL NUCLEATED CELLS 100; TOXIC GRANULATION 2+
[2016-09-01 16:28] LABS: HEMATOCRIT 26.4 % (40.0-51.0); HEMOGLOBIN 8.3 g/dL (13.6-17.8)
[2016-09-01 21:15] LABS: HEMOGLOBIN 7.6 g/dL (13.6-17.8)
[2016-09-01 21:16] LABS: HEMATOCRIT 23.4 % (40.0-51.0)
[2016-09-02 07:05] LABS: HEMATOCRIT 23.2 % (40.0-51.0); HEMOGLOBIN 7.3 g/dL (13.6-17.8)
[2016-09-02 12:55] LABS: HEMOGLOBIN 7.5 g/dL (13.6-17.8)
[2016-09-02 20:56] LABS: HEMATOCRIT 23.6 % (40.0-51.0); HEMOGLOBIN 7.5 g/dL (13.6-17.8)
[2016-09-03 06:51] LABS: HEMATOCRIT 23.7 % (40.0-51.0); HEMOGLOBIN 7.5 g/dL (13.6-17.8); MEAN CORPUS HGB CONC 31.6 g/dL (32.0-36.0); MEAN CORPUSCULAR HEMOGLOB 25.5 pg (26.0-34.0); MEAN CORPUSCULAR VOLUME 80.6 fL (80-100); MEAN PLATELET VOLUME 9.4 fL (9.2-13.0); PLATELET COUNT 645 10/3/uL (150-400); RBC DISTRIBUTION WIDTH 18.6 % (12.0-16.0); RED CELL COUNT 2.94 10/6/uL (4.7-6.1); WHITE BLOOD CELLS 22.3 10/3/uL (4.5-10.5)
[2016-09-03 06:52] LABS: MANUAL DIFF YES %
[2016-09-03 07:03] LABS: CHLORIDE, SERUM 100 MMOL/L (96-112); CO2 (CARBON DIOXIDE) 25 MMOL/L (24-34); GFR AFRICAN AMERICAN 92 ML/MIN (>=60); GFR NON AFRICAN AMERICAN 79 ML/MIN (>=60); GLUCOSE, SERUM 83 MG/DL (60-99); SODIUM, SERUM 134 MMOL/L (135-148)
[2016-09-03 07:04] LABS: BUN (BLOOD UREA NITROGEN) 15 MG/DL (6-23); POTASSIUM, SERUM 4.7 MMOL/L (3.5-5.3)
[2016-09-03 07:17] LABS: ANISOCYTOSIS 1+ (5-10/OIF) (0-5/OIF); BAND NEUTROPHILS 7 %; HYPOCHROMIA 1+ (3-10/OIF) (0-2/OIF); LYMPHOCYTES 2 %; LYMPHOCYTES ABSOLUTE (CALC) 0.45 10/3/uL (0.67-4.30); MONOCYTES 5 %; MONOCYTES ABSOLUTE (CALC) 1.12 10/3/uL (0.21-1.20); NEUTROPHILS ABSOLUTE (CALC) 20.74 10/3/uL (2.02-8.40); PLATELET ESTIMATE INC (ADEQUATE); SEGMENTED NEUTROPHIL (0) 86 %; TOTAL NUCLEATED CELLS 100
[2016-09-03 07:18] LABS: TOXIC GRANULATION 2+
[2016-09-04 06:41] LABS: INTERNATIONAL NORMAL RATI 1.4 UNITS (-); PROTIME (NOT ORD) 16.9 SEC (12.0-14.5)
[2016-09-04 06:42] LABS: PARTIAL THROMBO TIME 51.9 SEC (22.5-37.2)
[2016-09-04 06:46] LABS: HEMOGLOBIN 7.8 g/dL (13.6-17.8); MANUAL DIFF YES %; MEAN CORPUS HGB CONC 31.2 g/dL (32.0-36.0); MEAN CORPUSCULAR HEMOGLOB 25.5 pg (26.0-34.0); MEAN CORPUSCULAR VOLUME 81.7 fL (80-100); MEAN PLATELET VOLUME 9.4 fL (9.2-13.0); PLATELET COUNT 661 10/3/uL (150-400); RBC DISTRIBUTION WIDTH 18.6 % (12.0-16.0); RED CELL COUNT 3.06 10/6/uL (4.7-6.1); WHITE BLOOD CELLS 17.5 10/3/uL (4.5-10.5)
[2016-09-04 07:07] LABS: BUN (BLOOD UREA NITROGEN) 15 MG/DL (6-23); CALCIUM, SERUM 7.8 MG/DL (8.5-10.4); CHLORIDE, SERUM 98 MMOL/L (96-112); CO2 (CARBON DIOXIDE) 29 MMOL/L (24-34); CREATININE 1.15 MG/DL (0.70-1.30); GFR AFRICAN AMERICAN 87 ML/MIN (>=60); GFR NON AFRICAN AMERICAN 75 ML/MIN (>=60); GLUCOSE, SERUM 88 MG/DL (60-99); POTASSIUM, SERUM 4.2 MMOL/L (3.5-5.3); SODIUM, SERUM 137 MMOL/L (135-148)
[2016-09-04 08:13] LABS: BAND NEUTROPHILS 9 %; LYMPHOCYTES 6 %; LYMPHOCYTES ABSOLUTE (CALC) 1.05 10/3/uL (0.67-4.30); MONOCYTES 4 %; NEUTROPHILS ABSOLUTE (CALC) 15.75 10/3/uL (2.02-8.40); PLATELET ESTIMATE INC (ADEQUATE); SEGMENTED NEUTROPHIL (0) 81 %; TOTAL NUCLEATED CELLS 100
[2016-09-04 08:14] LABS: TARGET CELLS OCC (1-2/OIF) (0-1/OIF)
[2016-09-04 08:15] LABS: SCHISTOCYTES FEW (3-10/OIF); TEARDROP SHAPED RBCS OCC (0-2/OIF)
[2016-09-05 04:18] LABS: BASOPHILS 0.3 %; BASOPHILS ABSOLUTE 0.05 10/3/uL (0.0-0.16); EOSINOPHILS 0 %; HEMATOCRIT 23.8 % (40.0-51.0); HEMOGLOBIN 7.4 g/dL (13.6-17.8); IMMATURE GRANULOCYTES 2.8 %; LYMPHOCYTES 6.6 %; LYMPHOCYTES ABSOLUTE 0.96 10/3/uL (0.67-4.30); MANUAL DIFF NO %; MEAN CORPUS HGB CONC 31.1 g/dL (32.0-36.0); MEAN CORPUSCULAR HEMOGLOB 25.4 pg (26.0-34.0); MEAN CORPUSCULAR VOLUME 81.8 fL (80-100); MEAN PLATELET VOLUME 9.8 fL (9.2-13.0); MONOCYTES 11.4 %; MONOCYTES ABSOLUTE 1.65 10/3/uL (0.21-1.20); NEUTROPHILS 78.9 %; NEUTROPHILS ABSOLUTE 11.39 10/3/uL (2.02-8.40); PLATELET COUNT 545 10/3/uL (150-400); RBC DISTRIBUTION WIDTH 18.6 % (12.0-16.0); RED CELL COUNT 2.91 10/6/uL (4.7-6.1); WHITE BLOOD CELLS 14.5 10/3/uL (4.5-10.5)
[2016-09-05 04:27] LABS: BUN (BLOOD UREA NITROGEN) 15 MG/DL (6-23); CALCIUM, SERUM 7.5 MG/DL (8.5-10.4); CHLORIDE, SERUM 95 MMOL/L (96-112); CO2 (CARBON DIOXIDE) 30 MMOL/L (24-34); CREATININE 1.03 MG/DL (0.70-1.30); GFR AFRICAN AMERICAN 99 ML/MIN (>=60); GFR NON AFRICAN AMERICAN 85 ML/MIN (>=60); GLUCOSE, SERUM 115 MG/DL (60-99); POTASSIUM, SERUM 4.2 MMOL/L (3.5-5.3); SODIUM, SERUM 134 MMOL/L (135-148)
[2016-09-06 08:28] LABS: HEMATOCRIT 21.8 % (40.0-51.0); MEAN CORPUSCULAR HEMOGLOB 24.4 pg (26.0-34.0); MEAN PLATELET VOLUME 10.2 fL (9.2-13.0); RED CELL COUNT 2.54 10/6/uL (4.7-6.1); WHITE BLOOD CELLS 14.7 10/3/uL (4.5-10.5)
[2016-09-06 08:31] LABS: BUN (BLOOD UREA NITROGEN) 9 MG/DL (6-23); CALCIUM, SERUM 7.2 MG/DL (8.5-10.4); CHLORIDE, SERUM 99 MMOL/L (96-112); CO2 (CARBON DIOXIDE) 25 MMOL/L (24-34); CREATININE 0.86 MG/DL (0.70-1.30); GFR AFRICAN AMERICAN 119 ML/MIN (>=60); GFR NON AFRICAN AMERICAN 103 ML/MIN (>=60); GLUCOSE, SERUM 103 MG/DL (60-99); HEMOGLOBIN 6.2 g/dL (13.6-17.8); MEAN CORPUS HGB CONC 28.4 g/dL (32.0-36.0); MEAN CORPUSCULAR VOLUME 85.8 fL (80-100); PLATELET COUNT 360 10/3/uL (150-400); POTASSIUM, SERUM 3.8 MMOL/L (3.5-5.3); SODIUM, SERUM 136 MMOL/L (135-148)
[2016-09-06 08:32] LABS: MANUAL DIFF YES %
[2016-09-06 09:08] LABS: BAND NEUTROPHILS 7 %; IMMATURE GRANS ABSOLUTE (CALC) 0.29 10/3/uL (0.0-0.11); LYMPHOCYTES 7 %; LYMPHOCYTES ABSOLUTE (CALC) 1.03 10/3/uL (0.67-4.30); METAMYELOCYTES 1 %; MONOCYTES 10 %; MONOCYTES ABSOLUTE (CALC) 1.47 10/3/uL (0.21-1.20); MYELOCYTES 1 %; NEUTROPHILS ABSOLUTE (CALC) 11.91 10/3/uL (2.02-8.40); SEGMENTED NEUTROPHIL (0) 74 %; TOTAL NUCLEATED CELLS 100
[2016-09-06 09:09] LABS: ANISOCYTOSIS 1+ (5-10/OIF) (0-5/OIF); HYPOCHROMIA 1+ (3-10/OIF) (0-2/OIF); MICROCYTES 1+ (5-10/OIF) (0-5/OIF); PLATELET ESTIMATE ADQ (ADEQUATE)
[2016-09-06 09:10] LABS: TOXIC GRANULATION 1+
[2016-09-07 05:36] LABS: MEAN CORPUSCULAR HEMOGLOB 26.3 pg (26.0-34.0); MEAN CORPUSCULAR VOLUME 84.4 fL (80-100); MEAN PLATELET VOLUME 9.4 fL (9.2-13.0); RBC DISTRIBUTION WIDTH 17.3 % (12.0-16.0); WHITE BLOOD CELLS 16.9 10/3/uL (4.5-10.5)
[2016-09-07 05:41] LABS: HEMATOCRIT 33.1 % (40.0-51.0); HEMOGLOBIN 10.3 g/dL (13.6-17.8); MANUAL DIFF YES %; MEAN CORPUS HGB CONC 31.1 g/dL (32.0-36.0); PLATELET COUNT 573 10/3/uL (150-400); RED CELL COUNT 3.92 10/6/uL (4.7-6.1)
[2016-09-07 05:47] LABS: BUN (BLOOD UREA NITROGEN) 7 MG/DL (6-23); CALCIUM, SERUM 7.9 MG/DL (8.5-10.4); CHLORIDE, SERUM 99 MMOL/L (96-112); CO2 (CARBON DIOXIDE) 28 MMOL/L (24-34); CREATININE 0.74 MG/DL (0.70-1.30); GFR AFRICAN AMERICAN 126 ML/MIN (>=60); GFR NON AFRICAN AMERICAN 109 ML/MIN (>=60); GLUCOSE, SERUM 91 MG/DL (60-99); POTASSIUM, SERUM 4.1 MMOL/L (3.5-5.3); SODIUM, SERUM 136 MMOL/L (135-148)
[2016-09-07 07:14] LABS: ANISOCYTOSIS 1+ (5-10/OIF) (0-5/OIF); BAND NEUTROPHILS 11 %; IMMATURE GRANS ABSOLUTE (CALC) 1.01 10/3/uL (0.0-0.11); LYMPHOCYTES 7 %; LYMPHOCYTES ABSOLUTE (CALC) 1.18 10/3/uL (0.67-4.30); METAMYELOCYTES 5 %; MONOCYTES 12 %; MONOCYTES ABSOLUTE (CALC) 2.03 10/3/uL (0.21-1.20); MYELOCYTES 1 %; NEUTROPHILS ABSOLUTE (CALC) 12.68 10/3/uL (2.02-8.40); PLATELET ESTIMATE SLT INC (ADEQUATE); SEGMENTED NEUTROPHIL (0) 64 %; TOTAL NUCLEATED CELLS 100
[2016-09-07 07:15] LABS: HYPOCHROMIA 1+ (3-10/OIF) (0-2/OIF); MICROCYTES 1+ (5-10/OIF) (0-5/OIF)
[2016-09-08 07:05] LABS: HEMATOCRIT 29.9 % (40.0-51.0); HEMOGLOBIN 9.6 g/dL (13.6-17.8); MEAN CORPUS HGB CONC 32.1 g/dL (32.0-36.0); MEAN CORPUSCULAR HEMOGLOB 26.5 pg (26.0-34.0); MEAN CORPUSCULAR VOLUME 82.6 fL (80-100); MEAN PLATELET VOLUME 9.3 fL (9.2-13.0); RBC DISTRIBUTION WIDTH 17.9 % (12.0-16.0); RED CELL COUNT 3.62 10/6/uL (4.7-6.1); WHITE BLOOD CELLS 19.2 10/3/uL (4.5-10.5)
[2016-09-08 07:06] LABS: MANUAL DIFF YES %; PLATELET COUNT 398 10/3/uL (150-400)
[2016-09-08 07:16] LABS: BUN (BLOOD UREA NITROGEN) 7 MG/DL (6-23); CALCIUM, SERUM 7.8 MG/DL (8.5-10.4); CHLORIDE, SERUM 100 MMOL/L (96-112); CO2 (CARBON DIOXIDE) 26 MMOL/L (24-34); GFR AFRICAN AMERICAN 122 ML/MIN (>=60); GFR NON AFRICAN AMERICAN 106 ML/MIN (>=60); GLUCOSE, SERUM 101 MG/DL (60-99); POTASSIUM, SERUM 3.8 MMOL/L (3.5-5.3); SODIUM, SERUM 135 MMOL/L (135-148)
[2016-09-08 07:33] LABS: ANISOCYTOSIS 1+ (5-10/OIF) (0-5/OIF); BAND NEUTROPHILS 13 %; HYPOCHROMIA 1+ (3-10/OIF) (0-2/OIF); IMMATURE GRANS ABSOLUTE (CALC) 1.54 10/3/uL (0.0-0.11); LYMPHOCYTES 7 %; LYMPHOCYTES ABSOLUTE (CALC) 1.34 10/3/uL (0.67-4.30); METAMYELOCYTES 7 %; MICROCYTES 1+ (5-10/OIF) (0-5/OIF); MONOCYTES 14 %; MONOCYTES ABSOLUTE (CALC) 2.69 10/3/uL (0.21-1.20); MYELOCYTES 1 %; NEUTROPHILS ABSOLUTE (CALC) 13.63 10/3/uL (2.02-8.40); PLATELET ESTIMATE ADQ (ADEQUATE); SEGMENTED NEUTROPHIL (0) 58 %; TOTAL NUCLEATED CELLS 100
[2016-09-08 11:03] LABS: ASCORBIC ACID (UR NOT ORDER) NEG (NEG); BILIRUBIN, URINE NEGATIVE (NEG); KETONE, URINE NEGATIVE (NEG); LEUKOCYTE ESTERASE(NOT OR LARGE (NEG)
[2016-09-08 11:07] LABS: WBC (NOT ORDERED) (RFLEX) > 182 (0-5)
[2016-09-09 06:13] LABS: HEMATOCRIT 30.2 % (40.0-51.0); HEMOGLOBIN 9.5 g/dL (13.6-17.8); MEAN CORPUS HGB CONC 31.5 g/dL (32.0-36.0); MEAN CORPUSCULAR HEMOGLOB 26.2 pg (26.0-34.0); MEAN CORPUSCULAR VOLUME 83.4 fL (80-100); MEAN PLATELET VOLUME 9.5 fL (9.2-13.0); PLATELET COUNT 402 10/3/uL (150-400); RBC DISTRIBUTION WIDTH 18.1 % (12.0-16.0); RED CELL COUNT 3.62 10/6/uL (4.7-6.1); WHITE BLOOD CELLS 17.1 10/3/uL (4.5-10.5)
[2016-09-09 06:15] LABS: MANUAL DIFF YES %
[2016-09-09 06:27] LABS: BUN (BLOOD UREA NITROGEN) 7 MG/DL (6-23); CALCIUM, SERUM 7.8 MG/DL (8.5-10.4); CHLORIDE, SERUM 99 MMOL/L (96-112); CO2 (CARBON DIOXIDE) 28 MMOL/L (24-34); CREATININE 0.71 MG/DL (0.70-1.30); GFR AFRICAN AMERICAN 129 ML/MIN (>=60); GFR NON AFRICAN AMERICAN 111 ML/MIN (>=60); GLUCOSE, SERUM 90 MG/DL (60-99); SODIUM, SERUM 137 MMOL/L (135-148)
[2016-09-09 06:41] LABS: ANISOCYTOSIS 1+ (5-10/OIF) (0-5/OIF); BAND NEUTROPHILS 5 %; IMMATURE GRANS ABSOLUTE (CALC) 0.34 10/3/uL (0.0-0.11); LYMPHOCYTES 2 %; LYMPHOCYTES ABSOLUTE (CALC) 0.34 10/3/uL (0.67-4.30); METAMYELOCYTES 2 %; MONOCYTES 8 %; MONOCYTES ABSOLUTE (CALC) 1.37 10/3/uL (0.21-1.20); NEUTROPHILS ABSOLUTE (CALC) 15.05 10/3/uL (2.02-8.40); PLATELET ESTIMATE SLT INC (ADEQUATE); SEGMENTED NEUTROPHIL (0) 83 %; TOTAL NUCLEATED CELLS 100
[2016-09-10 06:23] LABS: HEMATOCRIT 32.1 % (40.0-51.0); HEMOGLOBIN 10.2 g/dL (13.6-17.8); MEAN CORPUS HGB CONC 31.8 g/dL (32.0-36.0); MEAN CORPUSCULAR HEMOGLOB 26.4 pg (26.0-34.0); MEAN CORPUSCULAR VOLUME 82.9 fL (80-100); MEAN PLATELET VOLUME 9.5 fL (9.2-13.0); PLATELET COUNT 441 10/3/uL (150-400); RBC DISTRIBUTION WIDTH 18.4 % (12.0-16.0); RED CELL COUNT 3.87 10/6/uL (4.7-6.1); WHITE BLOOD CELLS 16.3 10/3/uL (4.5-10.5)
[2016-09-10 06:25] LABS: MANUAL DIFF YES %
[2016-09-10 06:34] LABS: BUN (BLOOD UREA NITROGEN) 10 MG/DL (6-23); CALCIUM, SERUM 8.1 MG/DL (8.5-10.4); CHLORIDE, SERUM 102 MMOL/L (96-112); CO2 (CARBON DIOXIDE) 26 MMOL/L (24-34); CREATININE 0.73 MG/DL (0.70-1.30); GFR AFRICAN AMERICAN 127 ML/MIN (>=60); GFR NON AFRICAN AMERICAN 110 ML/MIN (>=60); GLUCOSE, SERUM 95 MG/DL (60-99); SODIUM, SERUM 137 MMOL/L (135-148)
[2016-09-10 06:49] LABS: BAND NEUTROPHILS 6 %; BASOPHILS 1 %; BASOPHILS ABSOLUTE (CALC) 0.16 10/3/uL (0.0-0.16); EOSINOPHILS 2 %; EOSINOPHILS ABSOLUTE (CALC) 0.33 10/3/uL (0.0-0.53); IMMATURE GRANS ABSOLUTE (CALC) 0.16 10/3/uL (0.0-0.11); LYMPHOCYTES 10 %; LYMPHOCYTES ABSOLUTE (CALC) 1.63 10/3/uL (0.67-4.30); METAMYELOCYTES 1 %; MONOCYTES 8 %; NEUTROPHILS ABSOLUTE (CALC) 12.71 10/3/uL (2.02-8.40); SEGMENTED NEUTROPHIL (0) 72 %; TOTAL NUCLEATED CELLS 100
[2016-09-10 06:50] LABS: ANISOCYTOSIS 1+ (5-10/OIF) (0-5/OIF); PLATELET ESTIMATE SLT INC (ADEQUATE)
[2016-09-10 08:04] LABS: PROCALCITONIN 0.58 ng/mL (<0.5)
[2016-09-11 06:41] LABS: HEMOGLOBIN 11.8 g/dL (13.6-17.8); MEAN CORPUS HGB CONC 31.4 g/dL (32.0-36.0); MEAN CORPUSCULAR HEMOGLOB 26.6 pg (26.0-34.0); MEAN CORPUSCULAR VOLUME 84.9 fL (80-100); MEAN PLATELET VOLUME 9.5 fL (9.2-13.0); PLATELET COUNT 542 10/3/uL (150-400); RBC DISTRIBUTION WIDTH 18.4 % (12.0-16.0); RED CELL COUNT 4.43 10/6/uL (4.7-6.1); WHITE BLOOD CELLS 20.7 10/3/uL (4.5-10.5)
[2016-09-11 06:43] LABS: BUN (BLOOD UREA NITROGEN) 9 MG/DL (6-23); CALCIUM, SERUM 8.6 MG/DL (8.5-10.4); CHLORIDE, SERUM 101 MMOL/L (96-112); CO2 (CARBON DIOXIDE) 25 MMOL/L (24-34); CREATININE 0.69 MG/DL (0.70-1.30); GFR AFRICAN AMERICAN 130 ML/MIN (>=60); GFR NON AFRICAN AMERICAN 112 ML/MIN (>=60); GLUCOSE, SERUM 86 MG/DL (60-99); HEMATOCRIT 37.6 % (40.0-51.0); MANUAL DIFF YES %; SODIUM, SERUM 135 MMOL/L (135-148)
[2016-09-11 07:00] LABS: BAND NEUTROPHILS 17 %; EOSINOPHILS 1 %; EOSINOPHILS ABSOLUTE (CALC) 0.21 10/3/uL (0.0-0.53); IMMATURE GRANS ABSOLUTE (CALC) 0.83 10/3/uL (0.0-0.11); LYMPHOCYTES 9 %; LYMPHOCYTES ABSOLUTE (CALC) 1.86 10/3/uL (0.67-4.30); METAMYELOCYTES 3 %; MONOCYTES 7 %; MONOCYTES ABSOLUTE (CALC) 1.45 10/3/uL (0.21-1.20); MYELOCYTES 1 %; NEUTROPHILS ABSOLUTE (CALC) 16.35 10/3/uL (2.02-8.40); SEGMENTED NEUTROPHIL (0) 62 %; TOTAL NUCLEATED CELLS 100
[2016-09-11 07:01] LABS: ANISOCYTOSIS 1+ (5-10/OIF) (0-5/OIF); GIANT PLATELET RARE; MICROCYTES 1+ (5-10/OIF) (0-5/OIF); PLATELET ESTIMATE SLT INC (ADEQUATE)
[2016-09-12 05:39] LABS: HEMATOCRIT 34.7 % (40.0-51.0); HEMOGLOBIN 10.9 g/dL (13.6-17.8); MEAN CORPUS HGB CONC 31.4 g/dL (32.0-36.0); MEAN CORPUSCULAR HEMOGLOB 26.2 pg (26.0-34.0); MEAN CORPUSCULAR VOLUME 83.4 fL (80-100); MEAN PLATELET VOLUME 9.4 fL (9.2-13.0); PLATELET COUNT 511 10/3/uL (150-400); RBC DISTRIBUTION WIDTH 18.2 % (12.0-16.0); RED CELL COUNT 4.16 10/6/uL (4.7-6.1)
[2016-09-12 05:40] LABS: MANUAL DIFF YES %
[2016-09-12 06:09] LABS: ANISOCYTOSIS 1+ (5-10/OIF) (0-5/OIF); BAND NEUTROPHILS 5 %; EOSINOPHILS 1 %; EOSINOPHILS ABSOLUTE (CALC) 0.23 10/3/uL (0.0-0.53); IMMATURE GRANS ABSOLUTE (CALC) 0.92 10/3/uL (0.0-0.11); LYMPHOCYTES 6 %; LYMPHOCYTES ABSOLUTE (CALC) 1.38 10/3/uL (0.67-4.30); METAMYELOCYTES 4 %; MONOCYTES 13 %; MONOCYTES ABSOLUTE (CALC) 2.99 10/3/uL (0.21-1.20); NEUTROPHILS ABSOLUTE (CALC) 17.48 10/3/uL (2.02-8.40); PLATELET ESTIMATE SLT INC (ADEQUATE); SEGMENTED NEUTROPHIL (0) 71 %; TOTAL NUCLEATED CELLS 100
[2016-09-13 06:08] LABS: MEAN CORPUS HGB CONC 31.3 g/dL (32.0-36.0); MEAN CORPUSCULAR VOLUME 83.3 fL (80-100); MEAN PLATELET VOLUME 8.9 fL (9.2-13.0); PLATELET COUNT 528 10/3/uL (150-400); RBC DISTRIBUTION WIDTH 18.5 % (12.0-16.0); RED CELL COUNT 3.84 10/6/uL (4.7-6.1); WHITE BLOOD CELLS 18.8 10/3/uL (4.5-10.5)
[2016-09-13 06:09] LABS: MANUAL DIFF YES %
[2016-09-13 06:25] LABS: BAND NEUTROPHILS 12 %; IMMATURE GRANS ABSOLUTE (CALC) 0.94 10/3/uL (0.0-0.11); LYMPHOCYTES 9 %; LYMPHOCYTES ABSOLUTE (CALC) 1.69 10/3/uL (0.67-4.30); METAMYELOCYTES 4 %; MONOCYTES 6 %; MONOCYTES ABSOLUTE (CALC) 1.13 10/3/uL (0.21-1.20); MYELOCYTES 1 %; NEUTROPHILS ABSOLUTE (CALC) 15.04 10/3/uL (2.02-8.40); SEGMENTED NEUTROPHIL (0) 68 %; TOTAL NUCLEATED CELLS 100
[2016-09-13 06:26] LABS: PLATELET ESTIMATE SLT INC (ADEQUATE); POLYCHROMASIA 1+ (2-5/OIF) (0-1/OIF); TOXIC GRANULATION 1+
[2016-09-14 05:07] LABS: HEMATOCRIT 31.2 % (40.0-51.0); HEMOGLOBIN 9.8 g/dL (13.6-17.8); MEAN CORPUS HGB CONC 31.4 g/dL (32.0-36.0); MEAN CORPUSCULAR HEMOGLOB 26.4 pg (26.0-34.0); MEAN CORPUSCULAR VOLUME 84.1 fL (80-100); MEAN PLATELET VOLUME 9.2 fL (9.2-13.0); PLATELET COUNT 508 10/3/uL (150-400); RBC DISTRIBUTION WIDTH 18.5 % (12.0-16.0); RED CELL COUNT 3.71 10/6/uL (4.7-6.1); WHITE BLOOD CELLS 20.2 10/3/uL (4.5-10.5)
[2016-09-14 05:09] LABS: MANUAL DIFF YES %
[2016-09-14 05:25] LABS: BUN (BLOOD UREA NITROGEN) 9 MG/DL (6-23); CALCIUM, SERUM 8.6 MG/DL (8.5-10.4); CHLORIDE, SERUM 96 MMOL/L (96-112); CO2 (CARBON DIOXIDE) 27 MMOL/L (24-34); CREATININE 0.72 MG/DL (0.70-1.30); GFR AFRICAN AMERICAN 128 ML/MIN (>=60); GFR NON AFRICAN AMERICAN 110 ML/MIN (>=60); GLUCOSE, SERUM 94 MG/DL (60-99); POTASSIUM, SERUM 4.2 MMOL/L (3.5-5.3); SODIUM, SERUM 133 MMOL/L (135-148)
[2016-09-14 05:38] LABS: PHOSPHORUS, SERUM 3.2 MG/DL (2.5-4.5)
[2016-09-14 06:17] LABS: ANISOCYTOSIS 1+ (5-10/OIF) (0-5/OIF); BAND NEUTROPHILS 3 %; EOSINOPHILS 1 %; IMMATURE GRANS ABSOLUTE (CALC) 0.61 10/3/uL (0.0-0.11); LYMPHOCYTES 14 %; LYMPHOCYTES ABSOLUTE (CALC) 2.83 10/3/uL (0.67-4.30); METAMYELOCYTES 2 %; MONOCYTES 4 %; MONOCYTES ABSOLUTE (CALC) 0.81 10/3/uL (0.21-1.20); MYELOCYTES 1 %; NEUTROPHILS ABSOLUTE (CALC) 15.76 10/3/uL (2.02-8.40); PLATELET ESTIMATE SLT INC (ADEQUATE); SEGMENTED NEUTROPHIL (0) 75 %; TOTAL NUCLEATED CELLS 100
[2016-09-14 06:18] LABS: POLYCHROMASIA 1+ (2-5/OIF) (0-1/OIF)
[2016-09-14 06:19] LABS: TOXIC GRANULATION 1+
[2016-09-18 05:06] LABS: HEMOGLOBIN 8.7 g/dL (13.6-17.8); MEAN CORPUS HGB CONC 31.6 g/dL (32.0-36.0); MEAN CORPUSCULAR VOLUME 85.4 fL (80-100); MEAN PLATELET VOLUME 8.9 fL (9.2-13.0); PLATELET COUNT 432 10/3/uL (150-400); RBC DISTRIBUTION WIDTH 18.7 % (12.0-16.0); RED CELL COUNT 3.22 10/6/uL (4.7-6.1); WHITE BLOOD CELLS 16.6 10/3/uL (4.5-10.5)
[2016-09-18 05:10] LABS: HEMATOCRIT 27.5 % (40.0-51.0); MANUAL DIFF YES %
[2016-09-18 07:29] LABS: BAND NEUTROPHILS 7 %; LYMPHOCYTES 4 %; LYMPHOCYTES ABSOLUTE (CALC) 0.66 10/3/uL (0.67-4.30); MONOCYTES 3 %; NEUTROPHILS ABSOLUTE (CALC) 15.44 10/3/uL (2.02-8.40); SEGMENTED NEUTROPHIL (0) 86 %; TOTAL NUCLEATED CELLS 100
[2016-09-18 07:30] LABS: ANISOCYTOSIS 1+ (5-10/OIF) (0-5/OIF); PLATELET ESTIMATE SLT DEC (ADEQUATE); POLYCHROMASIA 1+ (2-5/OIF) (0-1/OIF)
[2016-09-19 07:37] LABS: BASOPHILS 0.2 %; BASOPHILS ABSOLUTE 0.04 10/3/uL (0.0-0.16); EOSINOPHILS 0.4 %; EOSINOPHILS ABSOLUTE 0.07 10/3/uL (0.0-0.53); HEMATOCRIT 27.4 % (40.0-51.0); HEMOGLOBIN 8.6 g/dL (13.6-17.8); IMMATURE GRANULOCYTES 2.2 %; LYMPHOCYTES 9.1 %; LYMPHOCYTES ABSOLUTE 1.64 10/3/uL (0.67-4.30); MANUAL DIFF NO %; MEAN CORPUS HGB CONC 31.4 g/dL (32.0-36.0); MEAN CORPUSCULAR HEMOGLOB 26.4 pg (26.0-34.0); MEAN PLATELET VOLUME 8.9 fL (9.2-13.0); MONOCYTES 10.6 %; MONOCYTES ABSOLUTE 1.91 10/3/uL (0.21-1.20); NEUTROPHILS 77.5 %; NEUTROPHILS ABSOLUTE 14.02 10/3/uL (2.02-8.40); PLATELET COUNT 433 10/3/uL (150-400); RBC DISTRIBUTION WIDTH 18.6 % (12.0-16.0); RED CELL COUNT 3.26 10/6/uL (4.7-6.1); WHITE BLOOD CELLS 18.1 10/3/uL (4.5-10.5)
[2016-09-19 07:40] LABS: BUN (BLOOD UREA NITROGEN) 11 MG/DL (6-23); CHLORIDE, SERUM 99 MMOL/L (96-112); CO2 (CARBON DIOXIDE) 27 MMOL/L (24-34); POTASSIUM, SERUM 4.6 MMOL/L (3.5-5.3); SODIUM, SERUM 134 MMOL/L (135-148)
[2016-09-19 07:41] LABS: CALCIUM, SERUM 8.3 MG/DL (8.5-10.4); CREATININE 0.62 MG/DL (0.70-1.30); GFR AFRICAN AMERICAN 136 ML/MIN (>=60); GFR NON AFRICAN AMERICAN 117 ML/MIN (>=60); GLUCOSE, SERUM 95 MG/DL (60-99); PHOSPHORUS, SERUM 3.6 MG/DL (2.5-4.5)
[2016-09-20 05:57] LABS: HEMATOCRIT 26.7 % (40.0-51.0); HEMOGLOBIN 8.4 g/dL (13.6-17.8); MEAN CORPUS HGB CONC 31.5 g/dL (32.0-36.0); MEAN CORPUSCULAR HEMOGLOB 26.4 pg (26.0-34.0); MEAN PLATELET VOLUME 8.6 fL (9.2-13.0); PLATELET COUNT 448 10/3/uL (150-400); RBC DISTRIBUTION WIDTH 18.5 % (12.0-16.0); RED CELL COUNT 3.18 10/6/uL (4.7-6.1); WHITE BLOOD CELLS 21.2 10/3/uL (4.5-10.5)
[2016-09-20 05:58] LABS: MANUAL DIFF YES %
[2016-09-20 06:09] LABS: BUN (BLOOD UREA NITROGEN) 10 MG/DL (6-23); CHLORIDE, SERUM 97 MMOL/L (96-112); CO2 (CARBON DIOXIDE) 25 MMOL/L (24-34); GFR AFRICAN AMERICAN 138 ML/MIN (>=60); GFR NON AFRICAN AMERICAN 119 ML/MIN (>=60); GLUCOSE, SERUM 114 MG/DL (60-99); POTASSIUM, SERUM 4.2 MMOL/L (3.5-5.3); SODIUM, SERUM 131 MMOL/L (135-148)
[2016-09-20 06:36] LABS: PROCALCITONIN 0.53 ng/mL (<0.5)
[2016-09-20 06:38] LABS: LYMPHOCYTES 7 %; LYMPHOCYTES ABSOLUTE (CALC) 1.48 10/3/uL (0.67-4.30); MONOCYTES 2 %; MONOCYTES ABSOLUTE (CALC) 0.42 10/3/uL (0.21-1.20); NEUTROPHILS ABSOLUTE (CALC) 19.29 10/3/uL (2.02-8.40); PLATELET ESTIMATE SLT INC (ADEQUATE); SEGMENTED NEUTROPHIL (0) 91 %; TOTAL NUCLEATED CELLS 100
[2016-09-20 06:39] LABS: RBC MORPHOLOGY ABN (NORMAL)
[2016-09-20 20:59] LABS: ASCORBIC ACID (UR NOT ORDER) NEG (NEG); BILIRUBIN, URINE NEGATIVE (NEG); KETONE, URINE NEGATIVE (NEG); LEUKOCYTE ESTERASE(NOT OR LARGE (NEG); WBC (NOT ORDERED) (RFLEX) 171 (0-5)
[2016-09-21 09:53] LABS: HEMATOCRIT 26.6 % (40.0-51.0); HEMOGLOBIN 8.5 g/dL (13.6-17.8); MEAN CORPUSCULAR HEMOGLOB 26.5 pg (26.0-34.0); MEAN CORPUSCULAR VOLUME 82.9 fL (80-100); MEAN PLATELET VOLUME 8.8 fL (9.2-13.0); PLATELET COUNT 431 10/3/uL (150-400); RBC DISTRIBUTION WIDTH 18.4 % (12.0-16.0); RED CELL COUNT 3.21 10/6/uL (4.7-6.1); WHITE BLOOD CELLS 23.6 10/3/uL (4.5-10.5)
[2016-09-21 10:07] LABS: BUN (BLOOD UREA NITROGEN) 11 MG/DL (6-23); CALCIUM, SERUM 8.3 MG/DL (8.5-10.4); CHLORIDE, SERUM 95 MMOL/L (96-112); CO2 (CARBON DIOXIDE) 27 MMOL/L (24-34); CREATININE 0.68 MG/DL (0.70-1.30); GFR AFRICAN AMERICAN 131 ML/MIN (>=60); GFR NON AFRICAN AMERICAN 113 ML/MIN (>=60); GLUCOSE, SERUM 115 MG/DL (60-99); POTASSIUM, SERUM 4.2 MMOL/L (3.5-5.3); SODIUM, SERUM 132 MMOL/L (135-148)
[2016-09-21 10:16] LABS: BAND NEUTROPHILS 3 %; LYMPHOCYTES 2 %; LYMPHOCYTES ABSOLUTE (CALC) 0.47 10/3/uL (0.67-4.30); MONOCYTES 4 %; MONOCYTES ABSOLUTE (CALC) 0.94 10/3/uL (0.21-1.20); NEUTROPHILS ABSOLUTE (CALC) 22.18 10/3/uL (2.02-8.40); PLATELET ESTIMATE SLT INC (ADEQUATE); RBC MORPHOLOGY NORM (NORMAL); SEGMENTED NEUTROPHIL (0) 91 %; TOTAL NUCLEATED CELLS 100
[2016-09-22 04:11] LABS: BUN (BLOOD UREA NITROGEN) 9 MG/DL (6-23); CALCIUM, SERUM 8.3 MG/DL (8.5-10.4); CHLORIDE, SERUM 96 MMOL/L (96-112); CO2 (CARBON DIOXIDE) 26 MMOL/L (24-34); CREATININE 0.64 MG/DL (0.70-1.30); GFR AFRICAN AMERICAN 134 ML/MIN (>=60); GFR NON AFRICAN AMERICAN 116 ML/MIN (>=60); GLUCOSE, SERUM 96 MG/DL (60-99); POTASSIUM, SERUM 4.3 MMOL/L (3.5-5.3); SODIUM, SERUM 134 MMOL/L (135-148)
[2016-09-22 04:33] LABS: HEMATOCRIT 25.9 % (40.0-51.0); HEMOGLOBIN 8.1 g/dL (13.6-17.8); MEAN CORPUS HGB CONC 31.3 g/dL (32.0-36.0); MEAN CORPUSCULAR HEMOGLOB 26.6 pg (26.0-34.0); MEAN CORPUSCULAR VOLUME 85.2 fL (80-100); PLATELET COUNT 492 10/3/uL (150-400); RED CELL COUNT 3.04 10/6/uL (4.7-6.1); WHITE BLOOD CELLS 22.5 10/3/uL (4.5-10.5)
[2016-09-22 06:23] LABS: SEGMENTED NEUTROPHIL (0) 83 %; TOTAL NUCLEATED CELLS 100
[2016-09-22 06:24] LABS: ANISOCYTOSIS 1+ (5-10/OIF) (0-5/OIF); BAND NEUTROPHILS 6 %; LYMPHOCYTES 8 %; MONOCYTES 3 %; MONOCYTES ABSOLUTE (CALC) 0.68 10/3/uL (0.21-1.20); NEUTROPHILS ABSOLUTE (CALC) 20.03 10/3/uL (2.02-8.40); PLATELET ESTIMATE INC (ADEQUATE)
[2016-09-23 04:22] LABS: BASOPHILS 0.1 %; BASOPHILS ABSOLUTE 0.03 10/3/uL (0.0-0.16); EOSINOPHILS 0.6 %; EOSINOPHILS ABSOLUTE 0.12 10/3/uL (0.0-0.53); HEMATOCRIT 26.3 % (40.0-51.0); HEMOGLOBIN 8.3 g/dL (13.6-17.8); IMMATURE GRANULOCYTES 1.2 %; IMMATURE GRANULOCYTES ABSOLUTE 0.25 10/3/uL (0.0-0.11); LYMPHOCYTES 9.2 %; LYMPHOCYTES ABSOLUTE 1.93 10/3/uL (0.67-4.30); MEAN CORPUS HGB CONC 31.6 g/dL (32.0-36.0); MEAN CORPUSCULAR HEMOGLOB 26.7 pg (26.0-34.0); MEAN CORPUSCULAR VOLUME 84.6 fL (80-100); MEAN PLATELET VOLUME 8.8 fL (9.2-13.0); MONOCYTES ABSOLUTE 2.32 10/3/uL (0.21-1.20); NEUTROPHILS 77.9 %; NEUTROPHILS ABSOLUTE 16.43 10/3/uL (2.02-8.40); PLATELET COUNT 544 10/3/uL (150-400); RED CELL COUNT 3.11 10/6/uL (4.7-6.1); WHITE BLOOD CELLS 21.1 10/3/uL (4.5-10.5)
[2016-09-23 04:23] LABS: MANUAL DIFF NO %
== END 2016-09-23 11:05 | disposition home or self-care (01) | DRG 871 ==
LOC: 7NO 02:35 → 6NO 08-28 08:32 → 4EA 08-29 18:22
PROVIDERS: Internal Medicine; Nurse Practitioner Family; Radiology Vascular & Interventional Radiology
PROC: 0T903ZZ Drainage of Right Kidney, Percutaneous Approach (ICD-10-PCS; 2016-08-26)
PROC: 30233N1 Transfusion of Nonautologous Red Blood Cells into Peripheral Vein, Percutaneous Approach (ICD-10-PCS; 2016-08-26)
PROC: 0T913ZZ Drainage of Left Kidney, Percutaneous Approach (ICD-10-PCS; principal; 2016-09-05)
PROC: 0T903ZZ Drainage of Right Kidney, Percutaneous Approach (ICD-10-PCS; 2016-09-05)
DX: A41.9 Sepsis, unspecified organism (principal); N15.1 Renal and perinephric abscess; E43 Unspecified severe protein-calorie malnutrition; N17.9 Acute kidney failure, unspecified; E87.2 Acidosis; I31.3 Pericardial effusion (noninflammatory); D62 Acute posthemorrhagic anemia; C18.9 Malignant neoplasm of colon, unspecified; I82.4Z2 Acute embolism and thrombosis of unspecified deep veins of left distal lower extremity; R65.20 Severe sepsis without septic shock; B96.20 Unspecified Escherichia coli [E. coli] as the cause of diseases classified elsewhere; N13.5 Crossing vessel and stricture of ureter without hydronephrosis; Z68.22 Body mass index [BMI] 22.0-22.9, adult
CPT/HCPCS: 36415; 49405; 49418; 50432; 71010; 74000; 74176; 80048; 80053; 80069; 80202; 81001; 83605; 83735; 84100; 84145; 85007; 85014; 85018; 85025; 85027; 85610; 85730; 86850; 86900; 86901; 86920; 87070; 87075; 87077; 87086; 87186; 87205; 93005; 93306; 93970; 97110-GP; 97116-GP; 97162-GP; 97164-GP; 97530-GP; A9270-GY; A9577; C1729; C1769; C1894; J0690; J1170; J1956; J2250; J2270; J2370; J2405; J2543; J3010; J3370; P9016